=== PATIENT | male | born 1950 | race Caucasian/White ===

== ENCOUNTER 2018-07-24 11:20 | Day surgery (SDC) | payer OTHER ==
[~2018-07-24 11:20] MED LIST: ALLO300T PO; METO-239 PO; RIVA20TA2 PO
[2018-07-24] MEDS ORDERED: IV RINGERS,LACTATED 1000ML 1,000 ML IV SCH (11:35)
[2018-07-24] MEDS ORDERED: LIDOCAINE 1% PF 2 ML VIAL. ID PRN (11:45)
[2018-07-24] MEDS ORDERED: MIDAZOLAM HCL/PF 2 MG/2 ML VIAL. IV PRN (11:45)
[2018-07-24] MEDS ORDERED: fentaNYL PF VIAL 100 MCG/2 ML VIAL IV PRN ×2 (11:45)
[2018-07-24] MEDS: IV RINGERS,LACTATED 1000ML 1,000 ML IV SCH (11:56)
--- NOTE | 2018-07-24 12:03 | EKG ---
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
[2018-07-24 12:08] LABS: HEMATOCRIT 47.1 % (39.0-53.0); HEMOGLOBIN 15.8 g/dL (13.0-17.5); RED BLOOD COUNT 5.05 x10^6/uL (4.30-5.70); RED CELL DISTRIBUTION WIDTH 14.2 % (11.5-14.5); WHITE BLOOD COUNT 7.3 x10^3/uL (4.0-11.0)
[2018-07-24] MEDS ORDERED: PROPOFOL 20 ML IV ONE (12:12)
[2018-07-24 12:23] LABS: CALCIUM 9.4 mg/dL (8.5-10.1); GFR 74.5; POTASSIUM 4.2 mmol/L (3.5-5.1)
[2018-07-24 13:09] VITALS: BP 102/62
--- NOTE | 2018-07-24 13:14 | EKG ---
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
--- NOTE | 2018-07-24 16:18 | PDOC4 ---
Operative Note Operative Note Diagnosis. Atrial flutter/fibrillation. Procedure. Electrical cardioversion. The patient is a 67-year-old male with chronic atrial flutter/fibrillation. He has been on anticoagulation for greater than 2 months. After discussion with the patient and discussion of risks and benefits of cardioversion the patient agreed to proceed with attempted cardioversion. Informed consent was obtained. The anesthesiology service provided appropriate level of sedation. The patient received one synchronized discharge of 125 joules which converted him to sinus rhythm. He awoke normally and remained in normal sinus rhythm. Conclusion. Successful electrical cardioversion of atrial flutter to normal sinus rhythm. NIKKI PATE MD Jul 24, 2018 16:18
== END 2018-07-24 13:25 | disposition home or self-care (01) ==
LOC: SURG 11:20
PROVIDERS: ATTEND Internal Medicine Cardiovascular Disease
DX: I48.91 Unspecified atrial fibrillation (principal); I48.92 Unspecified atrial flutter
CPT/HCPCS: 36415; 80048; 85027; 92960; 93005; J2704

== ENCOUNTER → 2018-12-18 | Day surgery (SDC) | payer OTHER ==
[~2018-12-18] MED LIST changes: +HYDROmorphone 2 MG/ML VIAL IV PRN; +IV RINGERS,LACTATED 1000ML 1,000 ML IV SCH; +LIDOCAINE 2% PF 5 ML VIAL. ONE; +MORPHINE SULFATE 2 MG/ML VIAL. IV PRN; +ONDANSETRON PF 4 MG/2 ML VIAL. IV PRN; +PROCHLORPERAZINE 10 MG/2 ML VIAL. IV PRN; +PROPOFOL 40 ML IV ONE; +fentaNYL PF VIAL 100 MCG/2 ML VIAL IV PRN
[2018-12-18 09:05] VITALS: BP 120/63
--- NOTE | 2018-12-18 11:02 | HP ---
ADMIT DATE: 12/18/2018 REFERRING PHYSICIAN: Dr. Derek Moseley. HISTORY OF PRESENT ILLNESS: This is a 68-year-old male with past medical history significant for hypertension, diverticulosis, colonic polyps, seen for interval exam. Last exam was approximately 5 years ago. There has been no change in bowel habits. No diarrhea, constipation, melena and hematochezia. Weight and appetite are stable. No family history of colon polyps or colon cancer is encountered. He is otherwise without additional complaints. PAST MEDICAL HISTORY: Diverticulosis, hypertension, gout, history of colonic polyps. ALLERGIES: None. MEDICATIONS: Include allopurinol 300 mg daily. FAMILY AND SOCIAL HISTORY: He does not drink or smoke at this time. FAMILY HISTORY: Noncontributory. REVIEW OF SYSTEMS: Per records. PHYSICAL EXAMINATION: GENERAL: Reveals a well-nourished, well-developed male who is alert, cooperative, in no acute distress. VITAL SIGNS: Temperature is 97.9, pulse 67, respirations 20. HEENT: Reveals normocephalic, atraumatic head. Pupils and extraocular muscles are not tested. Sclerae anicteric. NECK: Supple. LUNGS: Clear. CARDIOVASCULAR: Reveals an S1, S2 without S3, S4 or appreciable murmur. ABDOMEN: Reveals a soft abdomen, normal bowel sounds, without appreciable hepatosplenomegaly. EXTREMITIES: Reveals no cyanosis, clubbing or edema. IMPRESSION: History of colonic polyps. Surveillance exam is recommended at this time. Risks and benefits of procedure including risk of hemorrhage and perforation during the operation have been discussed with the patient and is willing to proceed. ESVIN MCGINNIS MD DR: LESLIE/cade JOB#: [id number] / [id number]
--- NOTE | 2018-12-21 15:07 | PATHOLOGY ---
[facility] Accession Number: [id number] . 01 Material submitted: . rectum - RECTAL POLYP . 01 Clinical history: . Screening . 02 Diagnosis: Colorectal biopsies, rectal polyp: - Hyperplastic polyp. LBQ 12/21/2018 0946 Local . 02 Comment: There are no adenomatous changes or evidence of malignancy. (JPM/db; 12/21/2018) . 02 Electronically signed: . Zachery Clancy MD, Pathologist NPI- [id number] . 01 Gross description: . Received in formalin labeled "Azam, Thomas, rectal polyp," are 2 segments of tucker soft tissue measuring 0.8 x 0.3 x 0.2 cm in aggregate dimensions and measuring 0.4 cm each in maximum dimension. The specimen is submitted entirely in cassette A1. (TSD; 12/18/2018) TOB/TOB 12/18/20184 Local . 02 Pathologist provided ICD-10: K62.1 . 02 CPT . 929320 Specimen Comment: A courtesy copy of this report has been sent to [phone], [phone] Specimen Comment: [id number] Specimen Comment: Report sent to / DR DE LUNA Performed at: 01 [facility] [address], [place] [id number] MD Miguelangel Mosher MD Phone: [phone] Performed at: 02 [facility] [address] [place], [place] [id number] MD Zachery Clancy MD Phone: [phone]
== END ==
LOC: ENDOS 07:20
PROVIDERS: ATTEND Internal Medicine Gastroenterology
DX: Z12.11 Encounter for screening for malignant neoplasm of colon (principal); K63.5 Polyp of colon; K57.30 Diverticulosis of large intestine without perforation or abscess without bleeding; K64.0 First degree hemorrhoids; Z86.010 Personal history of colon polyps; Z98.890 Other specified postprocedural states; I10 Essential (primary) hypertension; M10.9 Gout, unspecified
CPT/HCPCS: 45380; 88305; J2001; J2704